=== PATIENT | female | born 2000 | race Hispanic/Latino ===

== ENCOUNTER 2022-12-10 17:27 | Inpatient (IN) | payer OTHER ==
[~2022-12-10] VITALS: Ht 162.6 cm; Wt 82.6 kg
[2022-12-10 18:55] VITALS: BP 103/62
[2022-12-10] MEDS ORDERED: AMPICILLIN 2GM+NS 100ML 100 ML IV SCH (19:00)
[2022-12-10] MEDS ORDERED: OXYTOCIN-LR 20 UNITS/1000 ML 1,000 ML IV SCH (19:00)
[2022-12-10] MEDS ORDERED: EPHEDRINE SULFATE 50 MG/ML AMPULE IVP PRN (19:00)
[2022-12-10] MEDS ORDERED: LACTATED RINGERS 500 ML 500 ML IV PRN (19:00)
[2022-12-10] MEDS ORDERED: MISOPROSTOL 25 MCG TAB PO SCH (19:00)
[2022-12-10] MEDS ORDERED: ROPIVACAINE 0.2% 100ML VIAL 100 ML EP SCH (19:00)
[2022-12-10] MEDS ORDERED: NALOXONE HCL 0.4 MG/1 ML ML IV PRN (19:00)
[2022-12-10 19:15] LABS: HEMATOCRIT 35.4 % (36-48); MEAN CORPUSCULAR HGB CONC 32.8 g/dL (32.0-36.0); MEAN CORPUSCULAR VOLUME 82.5 fL (80-100); RED BLOOD CELL COUNT(AUTO) 4.29 MIL/uL (4.00-5.50); RED CELL DISTRIBUTION WIDTH 13.8 % (11.0-15.5); WHITE BLOOD COUNT (AUTO) 10.3 K/uL (4.8-10.8)
[2022-12-10 19:27] LABS: APPEARANCE,URINE CLOUDY (CLEAR); BILIRUBIN,URINE NEGATIVE (NEGATIVE); COLOR,URINE LIGHT-YELLOW (YELLOW); GLUCOSE, URINE (UA) 50 mg/dL (NEGATIVE); KETONES,URINE NEGATIVE (NEGATIVE); LEUKOCYTE ESTERASE ,URINE 75 Leu/uL (NEGATIVE); NITRATE,URINE NEGATIVE (NEGATIVE); OCCULT BLOOD,URINE NEGATIVE (NEGATIVE); PH,URINE 6.5 (5.0-8.0); PROTEIN,URINE NEGATIVE (NEGATIVE); UROBILINOGEN,URINE 0.2 mg/dL (0.2-1.0)
[2022-12-10 19:31] LABS: BACTERIA,URINE FEW /HPF (None Seen); MUCUS,URINE RARE LPF (None Seen); SQUAMOUS EPITHELIAL CELL,UR MOD /HPF (0-2)
[2022-12-10 19:34] LABS: AMPHET/METH SCREEN,URINE NEGATIVE (NEGATIVE); BARBITURATE SCREEN, URINE NEGATIVE (NEGATIVE); BENZODIAZEPINES SCREEN,URINE NEGATIVE (NEGATIVE); CANNABINOID SCREEN,URINE NEGATIVE (NEGATIVE); COCAINE SCREEN,URINE NEGATIVE (NEGATIVE); OPIATE SCREEN,URINE NEGATIVE (NEGATIVE); PHENCYCLIDINE SCREEN,URINE NEGATIVE (NEGATIVE)
[2022-12-10] MEDS: LACTATED RINGERS 1000ML 1,000 ML IV PRN (22:24)
[2022-12-10] MEDS ORDERED: PREN-196 PO (22:37)
[2022-12-10] MEDS: PROMETHAZINE HCL 25 MG/ML 1ML AMPULE IM PRN (23:26)
[2022-12-10] MEDS: MEPERIDINE-PF 50 MG/ML SYG IVP PRN (23:27)
[2022-12-10] MEDS: AMPICILLIN 1GM+NS 50ML 50 ML IV SCH (23:40)
[2022-12-11] MEDS ORDERED: MISOPROSTOL 100 MCG TABLET PO ONE
[2022-12-11] MEDS: LACTATED RINGERS 1000ML 1,000 ML IV PRN ×2 (03:02→11:22)
[2022-12-11] MEDS: PROMETHAZINE HCL 25 MG/ML 1ML AMPULE IM PRN (03:50)
[2022-12-11] MEDS: AMPICILLIN 1GM+NS 50ML 50 ML IV SCH ×3 (03:50→11:21)
[2022-12-11] MEDS: MEPERIDINE-PF 50 MG/ML SYG IVP PRN (03:51)
[2022-12-11] MEDS ORDERED: OXYTOCIN-LR 20 UNITS/1000 ML 1,000 ML IV SCH ×2 (04:30)
[2022-12-11] MEDS ORDERED: CEFAZOLIN SODIUM 1 GM VIAL IVPB PRN (12:00)
[2022-12-11 12:12] LABS: RAPID PLASMA REAGIN NONREACTIVE (NONREACTIVE)
[2022-12-11] MEDS ORDERED: ONDANSETRON 4MG INJ ONE (12:38)
[2022-12-11] MEDS ORDERED: MORPHINE PF 100MG/10ML AMP IV ONE (12:38)
[2022-12-11] MEDS ORDERED: EPINEPHRINE PF 1MG (1:1,000) 1 MG/ML AMP ONE (12:39)
[2022-12-11] MEDS ORDERED: OXYTOCIN 10 UNIT/1ML 10ML VIAL ONE (12:48)
[2022-12-11] MEDS ORDERED: CEFAZOLIN SODIUM 2 GM VIAL IVPB ONE (13:36)
[2022-12-11] MEDS ORDERED: GLYCOPYRROLATE 1 MG/5 ML SYRINGE ONE (13:51)
[2022-12-11] MEDS ORDERED: MEPERIDINE-PF 75 MG/ML SYG IM PRN (15:00)
[2022-12-11] MEDS ORDERED: DEXTROSE 5 %-0.45 % NACL 1,000 ML IV PRN (15:00)
[2022-12-11] MEDS ORDERED: PROMETHAZINE HCL 25 MG/ML 1ML AMPULE IM PRN (15:00)
[2022-12-11] MEDS ORDERED: 0.9%NACL 10ML VIAL IVP PRN (15:00)
[2022-12-11] MEDS ORDERED: OXYTOCIN-LR 20 UNITS/1000 ML 1,000 ML IV PRN (15:00)
[2022-12-11] MEDS ORDERED: ONDANSETRON 4MG INJ IVP PRN (16:30)
[2022-12-11] MEDS ORDERED: DiphenhydrAMINE HCL 50 MG/ML VIAL IVP PRN (16:30)
[2022-12-11] MEDS ORDERED: NALOXONE HCL 0.4 MG/1 ML ML IVP PRN ×3 (16:30)
[2022-12-11] MEDS ORDERED: EPHEDRINE SULFATE 50 MG/ML AMPULE IVP PRN (16:30)
[2022-12-11 17:36] VITALS: BP 95/54
[2022-12-11 19:29] VITALS: BP 103/53
[2022-12-11 20:49] VITALS: BP 106/50
[2022-12-11 23:27] VITALS: BP 102/52
[2022-12-11] MEDS ORDERED: ACETAMINOPHEN WITH CODEINE 1 TAB TAB PO PRN (23:30)
[2022-12-12 04:18] VITALS: BP 99/54
[2022-12-12 06:30] LABS: HEMATOCRIT 31.2 % (36-48); MEAN CORPUSCULAR HGB CONC 32.4 g/dL (32.0-36.0); MEAN CORPUSCULAR VOLUME 83.4 fL (80-100); RED BLOOD CELL COUNT(AUTO) 3.74 MIL/uL (4.00-5.50); RED CELL DISTRIBUTION WIDTH 13.5 % (11.0-15.5); WHITE BLOOD COUNT (AUTO) 15.6 K/uL (4.8-10.8)
[2022-12-12 07:14] VITALS: BP 101/57
[2022-12-12] MEDS ORDERED: ACETAMINOPHEN WITH CODEINE 1 TAB TAB PO PRN (08:30)
[2022-12-12] MEDS ORDERED: HYDROCODONE/ACETAMINOPHEN 5/325 MG TAB PO PRN (08:30)
[2022-12-12] MEDS ORDERED: ACETAMINOPHEN 500 MG TABLET PO PRN (08:30)
[2022-12-12] MEDS ORDERED: BISACODYL 10 MG SUPP.RECT RC PRN (08:30)
[2022-12-12] MEDS: DOCUSATE SODIUM 100 MG CAP PO SCH ×2 (09:04→20:35)
[2022-12-12] MEDS: SIMETHICONE 80 MG TAB.CHEW PO PRN ×3 (09:05→20:35)
[2022-12-12] MEDS: IBUPROFEN 800 MG TAB PO SCH ×2 (09:06→17:07)
[2022-12-12 12:16] VITALS: BP 105/61
[2022-12-12 16:32] VITALS: BP 111/74
[2022-12-12 19:39] VITALS: BP 125/72
[2022-12-12 23:53] VITALS: BP 104/57
[2022-12-13] MEDS: IBUPROFEN 800 MG TAB PO SCH ×2 (01:12→09:27)
[2022-12-13 03:34] VITALS: BP 106/67
[2022-12-13 07:45] VITALS: BP 101/60
[2022-12-13] MEDS: SIMETHICONE 80 MG TAB.CHEW PO PRN (09:17)
[2022-12-13] MEDS: DOCUSATE SODIUM 100 MG CAP PO SCH (09:17)
[2022-12-13 11:54] VITALS: BP 105/69
[2022-12-13] MEDS ORDERED: ACET-2079 PO (12:48)
[2022-12-13] MEDS ORDERED: IBUP-2070 PO (12:48)
== END 2022-12-13 15:30 | disposition home or self-care (01) | DRG 788 ==
LOC: EDH 17:27 → EDBD 17:27 → OBSVTOIN 17:57 → LDH 17:57 → WSH 12-11 20:44
PROVIDERS: ADMIT Internal Medicine; ATTEND Internal Medicine
PROC: 10D00Z1 Extraction of Products of Conception, Low, Open Approach (ICD-10-PCS; principal; 2022-12-11 13:40)
DX: O62.2 Other uterine inertia (principal); O42.92 Full-term premature rupture of membranes, unspecified as to length of time between rupture and onset of labor; O77.0 Labor and delivery complicated by meconium in amniotic fluid; Z37.0 Single live birth; Z3A.39 39 weeks gestation of pregnancy
CPT/HCPCS: 36415; 59510; 76805; 80305; 81001; 85027; 86592; 86701; 86850; 86900; 86901; 87088; 87340; 87390; A4344; G0378; J0171; J0290; J0690; J2175; J2274; J2405; J2550; J2590; J3490; J7120